=== PATIENT | female | born 1960 | race Caucasian/White ===

== ENCOUNTER → 2021-01-07 07:59 | Outpatient (CLI) | payer MEDICARE | END | disposition home or self-care (01) | LOC: D.HCCARDIO 07:59 | PROVIDERS: ATTEND Internal Medicine Cardiovascular Disease | DX: R07.9 Chest pain, unspecified (principal) ==

== ENCOUNTER 2021-01-14 06:57 | Day surgery (SDC) | payer MEDICARE ==
[~2021-01-14] VITALS: Ht 160 cm; Wt 61.0 kg
--- NOTE | ~2021-01-14 | HEMODYNAMI ---
PATIENT:ABA GIL MEDICAL RECORD: [id number] : 62 LOCATION:[facility] ADMISSION DATE: 01/14/21 Generatedon:19:01 Patient name: ABA COTTON Patient #: [id number] SSN: [id number] : 1960 Date of study: 01/14/2021 Page: Of Hemodynamic Procedure Report Patient Data Patient Demographics Procedure consent was obtained First Name: ABA Gender: Female Last Name: CODI COTTON : 1960 Patient #: [id number] Age: 60 year(s) Race: SSN: [id number] Additional ID: [id number] Contact details Address: [address] [place] [address] State: [place] City: [place] Zip code: [address] Past Medical History Performed procedures and imaging results Date Procedure Procedure Results Comments Stress testing Positive->Intermediate with SPECT MPI risk Allergies: No known allergies Admission Admission Data Admission Date: 01/14/2021 Admission Time: 6:57 Arrival Date: 01/14/2021 Arrival Time: 0:00 Admit Source: Other Insurance Payor: Medicare [facility] #: [id number] Height (in.): 63 BSA: 1.63 (m2) Height (cm.): 160.02 BMI: 23.82 (kg/m2) Weight (lbs.): 134.48 Weight (kg.): 61 Lab Results Lab Result Date: 01/14/2021 Lab Result Time: 0:00 Biochemistry Name Units Result Min Max BUN mg/dl 12 --(-*--)-- 7 18 Creatinine mg/dl 0.7 --(*---)-- 0.6 1.3 eGFR ml/min 90 --(*---)-- 90 120 NONAFRICAN CBC Name Units Result Min Max Hematocrit % 39.9 -*(----)-- 42 54 Hemoglobin g/dl 14.1 --(*---)-- 13.5 17.5 Procedure Procedure Types Cath Procedure Diagnostic Procedure [facility] w/Coronaries Aortic Root Angiography Sedation Charges Moderate Sedation 10-24 minutes Procedure Description Procedure Date Procedure Date: 01/14/2021 Procedure Start Time: 8:40 Procedure End Time: 8:54 Procedure Staff Name Function Hussein Mata MD Performing Physician Sivan To RN Nurse Edna Luevano RT Scrub Sarah Chandler RT Monitor Procedure Data Cath Procedure Fluoroscopy Diagnostic fluoroscopy Total fluoroscopy Time: 2.7 time: 2.7 min min Diagnostic fluoroscopy Total fluoroscopy dose: 387 dose: 387 mGy mGy Contrast Material Contrast Material Type Amount (ml) Isovue 370 77 Entry Location Entry Primary Successful Side Size Upsize Upsize Entry Closure Succes sful Closure Location (Fr) 1 (Fr) 2 (Fr) Remarks Device Remarks Femoral Right 5 Fr Exoseal artery Estimated blood loss: 5 ml Diagnostic catheters Device Type Used For End Catheter Placement MULTIPACK JL 4.0 5Fr Procedure catheter MULTIPACK 3DRC 5Fr Procedure catheter MULTIPACK Pigtail 5 Fr Procedure catheter Procedure Complications No complications Procedure Medications Medication Administration Route Dosage Zofran I.V. 4 mg Fentanyl I.V. 50 mcg Versed I.V. 1 mg Oxygen NC 3 l/min Lidocaine 1% added to field 20 0.9% NaCl I.V. 100 ml/hr Versed I.V. 1 mg Fentanyl I.V. 50 mcg Versed I.V. 1 mg Hemodynamics Rest BSA: 1.63 (m2) HGB: 14.1 (g/dl) O2 Consumption: Estimated: 155.58 (ml/min) O2 Co nsumption indexed: Estimated:95.45 (ml/min/m) Heart Rate: 71 (bpm) Pressure Samples Time Site Value (mmHg) Purpose Heart Use Rate(bpm) 8:48 LV 88/38,30 Snapshot 54 8:49 AO 112/63(86) Pullback 68 8:49 LV 152/-4,13 Pullback 68 Gradients Valve Time Site 1 Site 2 Mean SEP/DFP Peak To Heart Use (mmHg) (sec/min) Peak Rate (mmHg) (bpm) Aortic 8:49 LV AO 33 20 40 68 152/-4,13 112/63(86) Calculations Valve P-P Mean Valve Index Valve Source Name Gradient Area Flow (cm2) Aortic 40 33 40 33 Snapshots Pre Cath Intra NCS Post Cath Vital Signs Time Heart Resp SPO2 etCO2 NIBP (mmHg) Rhythm Pain Sedation Rate (ipm) (%) (mmHg) Status Level (bpm) 8:31:05 72 16 97 17.1 134/90(115) NSR 0 (11) 10(A) , No pain 8:35:17 72 18 92 41.7 125/81(96) NSR 0 (11) 10(A) , No pain 8:39:25 71 13 97 36.5 131/77(108) NSR 0 (11) 10(A) , No pain 8:43:39 74 9 92 46.2 109/69(98) NSR 0 (11) 9(A) , No pain 8:47:40 82 10 92 49.9 124/78(94) NSR 0 (11) 9(A) , No pain 8:51:48 83 13 94 25.3 115/75(89) NSR 0 (11) 9(A) , No pain 8:59:21 78 11 94 47.7 117/66(95) NSR 0 (11) 10(A) , No pain Medications Time Medication Route Dose Verified Delivered Reason Notes Effectiven ess by by 8:31:31 Oxygen NC 3 Hussein Sivan for low 02 l/min Adolfo To sats RN 8:31:45 Lidocaine added 20ml Hussein Sivan for local 1% to vial Adolfo To anesthetic field RN 8:31:59 0.9% NaCl I.V. 100 Hussein Sivan used for ml/hr Adolfo To physician/internist 8:38:08 Zofran I.V. 4 mg Hussein Sivan for nausea Adolfo To RN 8:38:15 Fentanyl I.V. 50 Hussein Sivan for mcg Adolfo Nielsenor sedation RN 8:38:23 Versed I.V. 1 mg Hussein Sivan for Adolfo To sedation RN 8:42:10 Fentanyl I.V. 50 Hussein Sivan for mcg Adolfo To sedation RN 8:42:59 Versed I.V. 1 mg Hussein Sivan for Adolfo To sedation RN 8:46:20 Versed I.V. 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 7:53:31 Procedure Status Elective Heart Cath (OP). 7:53:33 Time tracking: Regular hours (M-F 7:00 - 5:00) 7:53:37 Plan of Care:Hemodynamics will remain stable., Cardiac rhythm will remain stable., Comfort level will be maintained., Respiratory function will remain adequate., Patient/ family verbilizes understanding of procedure., Procedure tolerated without complication., Recovers from procedure without complications.. 7:54:21 H&P Date Dictated: 12/20/2020 Within 30 days and on chart.. 7:54:29 Patient allergic to No known allergies 7:54:36 Alarms reviewed by R. N. 7:54:36 Sharps counted by scrub and verified by R.N. 7:56:56 Patient Height : 63 inches 7:57:03 Patient Weight : 134.48 lbs 7:57:08 Insurance Payor : Medicare 7:57:09 Arrival Date: 01/14/2021 12:00:00 AM 8:01:12 Stress Test: yes; abnormal APICAL 8:05:07 Patient NPO since Midnight. 8:12:35 Lab results pending. 8:12:43 Edna Luevano RT(R) sent for patient. Start room use. 8:17:10 Patient received from Pre/Post Procedure Room to CCL 2 Alert and oriented. Tansferred to table in Supine position. 8:17:11 Warm blankets applied, and cammie hugger turned on for patient comfort. 8:17:11 Correct patient and procedure confirmed by team. 8:17:12 ECG and BP/O2 sat monitors applied to patient. 8:17:15 Pre-procedure instructions explained to patient. 8:17:15 Pre-op teaching completed and patient verbalized understanding. 8:17:17 Family unavailable. 8:17:19 Is the patient allergic to Iodine/contrast media? No. 8:17:21 Was the patient premedicated? Yes 8:17:22 Is patient on blood thinner?No 8:17:24 Patient diabetic? No. 8:17:25 If diabetic: On Metformin? N/A 8:17:28 Patient not . Patient is over age 55. 8:17:28 ----Pre-sedation anethsthesia assessment.---- 8:17:32 Previous problem with sedation/anesthesia? Yes NAUSEA 8:17:33 Snore? Yes 8:17:35 Sleep apnea? No 8:17:36 Deviated septum? No 8:17:39 Opens mouth fully? Yes 8:17:41 Sticks out tongue? Yes 8:17:43 Airway obstruction? No ? 8:17:49 Dentures? Yes IN TIGHT 8:30:01 Vital chart was started 8:31:31 Oxygen 3 l/min NC was administered by Sivan To RN; for low 02 sats; Verbal order read back and verified. 8:31:45 Lidocaine 1% 20ml vial added to field was administered by Sivan To RN; for local anesthetic; Verbal order read back and verified. 8:31:48 Baseline sample Acquired. 8:31:50 Full Disclosure recording started 8:31:54 Rhythm: sinus rhythm 8:31:59 0.9% NaCl 100 ml/hr I.V. was administered by Sivan To RN; used for procedure; Verbal order read back and verified. 8:32:01 Modified Mikhail's test Ulnar > 7 seconds. 8:32:03 Patient pain scale 0/10 ?. 8:32:09 IV patent on arrival in left antecubital with 0.9% NaCl at [facility]. 8:32:13 Right groin area was prepped with chlora-prep and draped in sterile fashion 8:32:16 Use device set Femoral Dx 8:32:17 ACIST Syringe (00558) opened to sterile field. 8:32:18 Bag Decanter (2002) opened to sterile field. 8:32:22 Medline Cath Pack ([id number]) opened to sterile field. 8:32:23 DIAGNOSTIC Multipack 5Fr catheter set (RI0885) opened to sterile field. 8:32:24 ACIST Hand Control (13126) opened to sterile field. 8:32:25 ACIST Manifold (25039) opened to sterile field. 8:32:27 SHEATH 5FR [place] (XER690) opened to sterile field. 8:32:28 EMERALD Guide Wire (828-792) opened to sterile field. 8:32:29 Tegaderm 4 x 4 (1626W) opened to sterile field. 8:33:49 Lab Result : eGFR NONAFRICAN 90 ml/min 8:33:49 Lab Result : Hemoglobin 14.1 g/dl 8:33:49 Lab Result : BUN 12 mg/dl 8:33:49 Lab Result : Creatinine 0.7 mg/dl 8:33:49 Lab Result : Hematocrit 39.9 % 8:34:39 Risk of Mortality: 0.1 8:34:41 Risk of blood transfusion: 0.8 8:34:43 Risk of CLIFFORD: 0.2 8:35:14 --------ALL STOP TIME OUT------ 8:35:17 Final Timeout: patient, procedure, and site verified with staff and physician. All members of the team are in agreement. 8:35:19 Right groin site verified by team. 8:35:21 Fire Safety Assessment: A--An alcohol-based skin anteseptic being used preoperatively., C--Open oxygen or nitrous oxide is being used., D--An ESU, laser, or fiber-optic light is being used. 8:35:23 Physical assessment completed. ASA score P 2 - A patient with mild systemic disease as per Hussein Mata MD. 8:35:25 1) 90+ Normal kidney functon but urine findings or structural abnormalities or genetic trait point to kidney disease. 8:35:28 Maximum allowable contrast dose (3.7 X eGFR X 0.75)250 ml. 8:35:30 Sedation plan: IV Moderate Sedation Medication:Versed, Fentanyl 8:38:08 Zofran 4 mg I.V. was administered by Sivan To RN; for nausea; Verbal order read back and verified. 8:38:15 Fentanyl 50 mcg I.V. was administered by Sivan To RN; for sedation; Verbal order read back and verified. 8:38:23 Versed 1 mg I.V. was administered by Sivan To RN; for sedation; Verbal order read back and verified. 8:39:39 Procedure started. 8:40:03 Local anesthetic to right femoral artery with Lidocaine 2% by Hussein Mata MD.INITIAL ACCESS ONLY 8:41:28 J WIRE USED FOR SHEATH INSERTION. 8:41:31 A 5 Fr sheath was inserted into the Right Femoral artery 8:42:07 A MULTIPACK JL 4.0 5Fr catheter was advanced over the wire and used for Procedure. 8:42:10 Fentanyl 50 mcg I.V. was administered by Sivan To RN; for sedation; Verbal order read back and verified. 8:42:59 Versed 1 mg I.V. was administered by Sivan To RN; for sedation; Verbal order read back and verified. 8:43:31 LCA angiography performed. 8:43:33 Injector settings: Ml/sec: 3, Volume: 6, 8:44:44 Catheter exchanged over wire. 8:45:22 A MULTIPACK 3DRC 5Fr catheter was advanced over the wire and used for Procedure. 8:45:57 RCA angiography performed. 8:46:00 Injector settings: Ml/sec: 3, Volume: 6, 8:46:20 Versed 1 mg I.V. was administered by Sivan To RN; for sedation; Verbal order read back and verified. 8:46:22 ACCDominant side:Left 8:46:24 Catheter exchanged over wire. 8:46:53 A MULTIPACK Pigtail 5 Fr catheter was advanced over the wire and used for Procedure. 8:47:41 LV gram done using GEIGER 8:48:29 LV hemodynamics recorded. 8:48:43 Injector settings: Ml/sec: 5, Volume: 15, 8:48:45 EF : 55 % 8:49:14 Aortic Root visualized 8:49:16 Injector settings: Ml/sec: 10, Volume: 20, 8:49:53 Catheter removed. 8:49:56 EXOSEAL 5Fr (EX500) opened to sterile field. 8:50:11 Sheath removed intact; hemostasis achieved with Exoseal to the Right Femoral artery. 8:50:17 Fluoroscopy time 02.70 minutes. 8:50:20 Flurop Dose total: 387 8:50:20 Fluoroscopy dose: 387 mGy 8:50:24 Dose Area Product 24261 mGy/cm. 8:50:28 Contrast amount:Isovue 370 77ml. 8:50:30 Maximum allowable dose exceeded? No. 8:50:44 Sharps counted by scrub and verified by R.N. 8:51:48 Procedure ended.(Physican Out) 8:52:03 Post-op/insertion site Right Femoral artery dressed using a 4 x 4 and Tegaderm. 8:52:08 Post right femoral artery:stable, soft, clean and dry 8:52:10 Post Procedure Pulses reassessed and unchanged 8:52:13 Post procedure: right dorsailis pedis pulse 2+ Normal; easily identifiable; not easily obliterated. 8:52:16 Post-procedure physical assessment completed. ASA score P 2 - A patient with mild systemic disease as per Hussein Mata MD. 8:52:18 Post procedure rhythm: unchanged. 8:52:21 Estimated blood loss: 5 ml 8:52:23 Post procedure instruction explained to patient.Patient verbalizes understanding. 8:52:23 Patient needs reinforcement of post procedure teaching. 8:53:29 Procedure type changed to Cath procedure, Diagnostic procedure, LHC, C w/Coronaries, Aortic Root Angiography, Sedation Charges, Moderate Sedation 10-24 minutes 8:53:59 Procedure and supply charges have been captured, reviewed, submitted and are correct. 8:54:03 Procedure Complication : No complications 8:54:20 Vital chart was stopped 8:54:23 [facility] Findings: mild to moderate CAD (<70%) 8:54:24 Operative report dictated upon procedure completion. 8:54:24 See physician's report for complete and final results. 8:54:27 Report given to Pre/Post Procedure Room. 8:54:31 Patient transfered to Pre/Post Procedure Room with Stretcher. 8:54:33 Procedure ended. 8:54:33 Full Disclosure recording stopped 8:54:40 End room use (Document Last) 8:54:51 End room use (Document Last) Device Usage Item Name Manufacture Quantity Catalog Hospital Part Current Minimal L ot# / Number Charge Number Stock Stock Serial# Code [facility] Acist 1 72958 131351 181885 556349 20 Syringe Medical (75035) Systems Inc Bag Microtek 1 930258 93256 795473 5 Decanter Medical Inc. () Medline Medline 1 [id number] 288339 35710 717518 5 Cath Pack ([id number]) DIAGNOSTIC Cardinal 1 CT1189 276984 40459 775083 30 Multipack Health 5Fr catheter set (JE4651) ACIST Hand Acist 1 37398 394467 719129 150776 5 Control Medical (88924) Systems Inc ACIST Acist 1 62261 217586 617541 407328 5 Manifold Medical (89846) Systems Inc SHEATH 5FR Terumo 1 ZMI467 846271 739795 057541 5 [place] (SNS399) EMERALD Cardinal 1 502-455 852340 043613 413939 5 Guide Wire Health (502455) Tegaderm 4 3M 1 1626W 692510 460531 922801 5 x 4 (1626W) MULTIPACK Cardinal 1 407306 5 JL 4.0 5Fr Health catheter MULTIPACK Cardinal 1 697544 5 3DRC 5Fr Health catheter MULTIPACK Cardinal 1 748407 5 Pigtail 5 Health Fr catheter EXOSEAL 5Fr Cardinal 1 EX500 555634 417150 143699 10 (EX500) Health Signature Audit [place] Stage Time Signature Unsigned Intra-Procedure 01/14/2021 Sarah Chandler 8:54:51 AM RT(R) Intra-Procedure 01/14/2021 Sivan 8:58:15 AM Zuleika PRINCE Intra-Procedure 01/14/2021 Hussein Mata MD 9:00:59 AM Signatures Performing Physician : Signature : Hussein Mata MD Date : Time : Nurse : Sivan Signature : Zuleika RN Date : Time : Monitor : Sarah Chandler Signature : RT Date : Time : [facility] [address] [facility] [place] [address]
[2021-01-14] MEDS ORDERED: BUPROPION XL150 MG PO (07:46)
[2021-01-14] MEDS ORDERED: ZOLOFT100 MG PO (07:46)
[2021-01-14] MEDS ORDERED: XANAX1 MG PO (07:47)
[2021-01-14] MEDS ORDERED: ADDERALL 30 MG30 MG PO (07:47)
[2021-01-14] MEDS ORDERED: HYDROCODON-ACE1 EA10 PO (07:48)
[2021-01-14] MEDS ORDERED: AMITIZA8 MCG PO (07:48)
[2021-01-14] MEDS ORDERED: NAMENDA10 MG PO (07:48)
[2021-01-14] MEDS ORDERED: MINOCYCLINE HC100 M1 PO (07:49)
[2021-01-14] MEDS ORDERED: BAYER CHEWABLE81 MG PO (07:49)
[2021-01-14] MEDS ORDERED: TRAZODONE HCL100 MG PO (07:49)
[2021-01-14] MEDS ORDERED: VITAMIN B-122500 MCG PO (07:49)
[2021-01-14] MEDS ORDERED: VITAMIN D325 MC1 PO (07:50)
[2021-01-14] MEDS ORDERED: ZINC SULFATE220 MG PO (07:50)
[2021-01-14 07:53] VITALS: BP 148/78; Ht 160 cm; Wt 61.0 kg
[2021-01-14 08:19] LABS: BASOPHILS 0.4 % (0-2); EOSINOPHILS 2.3 % (0-7); HEMATOCRIT 39.9 % (36.0-48.0); HEMOGLOBIN 14.1 g/dL (12-16); IMMATURE GRANULOCYTES 0.3 % (0-5); LYMPHOCYTE ABS# 2.17 10x3/uL (1.18-3.74); MCH 32.4 pg (26.0-34.0); MCHC 35.3 g/dL (31.0-37.0); MCV 91.7 fL (80.0-100.0); MEAN PLATELET VOLUME 10.8 fL (7.4-10.4); NEUTROPHIL ABS# 4.66 10x3/uL (1.56-6.13); PLATELET COUNT 153 10x3/uL (130-400); RBC 4.35 10x6/uL (4.00-5.40); RDW 12.3 % (11.5-14.5); WBC 7.8 10x3/uL (4.8-10.8)
[2021-01-14 08:21] LABS: ALT (SGPT) 34 U/L (10-68); CALC OSMOLALITY 286 mosm/kg (275-300); CARBON DIOXIDE 30.6 mmol/L (21.0-32.0); CHLORIDE - SERUM 103 mmol/L (98-107); CHOL - HDL RATIO 5.7 ratio (2.3-4.1); CHOLESTEROL, TOTAL 266 mg/dL (0-200); CREATININE - SERUM 0.7 mg/dL (0.6-1.3); GLUCOSE 98 mg/dL (74-106); HDL CHOLESTEROL 47 mg/dL (32-96); LDL CHOLESTEROL 148 mg/dL (0-100); LDL-HDL RATIO 3.1 ratio (1.5-3.5); POTASSIUM - SERUM 3.2 mmol/L (3.5-5.1); SODIUM 144 mmol/L (136-145); TRIGLYCERIDE 357 mg/dL (30-200); UREA NITROGEN 12 mg/dL (7-18); eGFR NON AFRICAN AMERICAN > 90 mL/min (90-120)
--- NOTE | 2021-01-14 09:08 | NUR ---
PT ARRIVED BY STRETCHER. PLACED ON MONITORS. ASSESSMENT COMPLETED. VSS AT THIS TIME. CALL LIGHT WITHIN REACH.
--- NOTE | 2021-01-14 09:23 | NUR ---
PT RESTING COMFORTABLY. VSS AT THIS TIME. CALL LIGHT WITHIN REACH. RIGHT GROIN DRESSING C/D/I. NO S/S OF HEMATOMA NOTED.
--- NOTE | 2021-01-14 09:55 | NUR ---
RIGHT GROIN DRESSING C/D/I. NO S/S OF HEMATOMA NOTED. CALL LIGHT WITHIN REACH. VSS AT THIS TIME. FAMILY AT BEDSIDE.
--- NOTE | 2021-01-14 10:30 | NUR ---
RIGHT GROIN DRESSING C/D/I. NO S/S OF HEMATOMA NOTED. RIGHT PEDAL PULSE PALPABLE. VSS AT THIS TIME. HEAD OF BED INC TO 30 DEGREES. TOLERATED WELL. PT STILL VERY SLEEPY. DOES NOT WANT TO HAVE ANYTHING TO DRINK AT THIS TIME. DR. THOMPSON ROUNDED AND SPOKE WITH PT AND PT'S FAMILY. PT DENIES NAUSEA/PAIN.
--- NOTE | 2021-01-14 11:00 | NUR ---
RIGHT GROIN DRESSING C/D/I. NO S/S OF HEMATOMA NOTED. PT STILL DROWSY. TOLERATING SIPS OF WATER. DENIES NAUSEA/PAIN. FAMILY AT BEDSIDE. CALL LIGHT WITHIN REACH.
--- NOTE | 2021-01-14 11:15 | NUR ---
PIV D/C'D WITH CATH TIP INTACT. PT IS MORE AWAKE. DOES NOT WANT TO EAT HERE. WILL GET SOMETHING WHEN THEY LEAVE. DENIES NAUSEA/PAIN. RIGHT GROIN DRESSING C/D/I. NO S/S OF HEMATOMA NOTED. PT ASSISTED GETTING DRESSED. SHE DID DO MOST EVERYTHING HERSELF. JUST NEEDED HELP HANDING HER HER CLOTHING.
--- NOTE | 2021-01-14 11:25 | NUR ---
DISCUSSED DISCHARGE INSTRUCTIONS WITH PT. SHE VOICED UNDERSTANDING.
--- NOTE | 2021-01-14 11:30 | NUR ---
PT TAKEN TO RESTROOM BY WHEELCHAIR. SHE VOICED WITHOUT DIFFICULTY. RIGHT GROIN DRESSING C/D/I. NO S/S OF HEMATOMA NOTED. PT TAKEN OUT TO VEHICLE BY WHEELCHAIR. NO S/S OF DISTRESS NOTED. ALL BELONGINGS AND PAPERWORK IN HAND.
== END 2021-01-14 11:30 | disposition home or self-care (01) ==
LOC: D.CATH 06:57
PROVIDERS: ATTEND Internal Medicine Cardiovascular Disease
DX: I20.8 Other forms of angina pectoris (principal); R94.39 Abnormal result of other cardiovascular function study; R07.9 Chest pain, unspecified; I35.9 Nonrheumatic aortic valve disorder, unspecified